=== PATIENT | female | born 1960 | race Caucasian/White ===

== ENCOUNTER 2017-04-15 13:30 | Outpatient (RCR) | payer OTHER | END 2017-05-05 | LOC: OT 13:30 | PROVIDERS: ATTEND Surgery Surgery of the Hand | DX: M18.11 Unilateral primary osteoarthritis of first carpometacarpal joint, right hand (principal); M79.644 Pain in right finger(s) | CPT/HCPCS: 97022; 97035; 97110; 97165; G8987; G8988 ==